=== PATIENT | male | born 1995 | race Caucasian/White ===

== ENCOUNTER 2017-12-07 13:42 | Emergency (ER) | payer MEDICAID ==
[~2017-12-07] VITALS: Ht 190.5 cm; Wt 107.2 kg
[2017-12-07 13:56] VITALS: BP 137/82
== END 2017-12-07 15:32 | disposition home or self-care (01) ==
LOC: ED 14:30
DX: G89.11 Acute pain due to trauma (principal); M25.531 Pain in right wrist; F17.200 Nicotine dependence, unspecified, uncomplicated
CPT/HCPCS: 29125; 99284

== ENCOUNTER 2019-08-27 13:02 | Emergency (ER) | payer MEDICAID ==
[~2019-08-27] VITALS: Ht 190.5 cm; Wt 105.0 kg
[2019-08-27 13:04] VITALS: BP 136/79
--- NOTE | 2019-08-27 13:44 | NUR ---
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
[2019-08-27] MEDS ORDERED: IBUPROFEN 200 MG TABLET ONE (14:13)
[2019-08-27] MEDS ORDERED: IBUPROFEN 600 MG TABLET PO ONE (14:30)
[2019-08-27] MEDS ORDERED: LIDOCAINE-MPF 1%, 5ML ONE (14:54)
[2019-08-27] MEDS ORDERED: LIDOCAINE-MPF 1%, 5ML INFIL ONE (15:00)
== END 2019-08-27 15:49 | disposition home or self-care (01) ==
LOC: ED 15:10
DX: S80.01XA Contusion of right knee, initial encounter (principal); F17.200 Nicotine dependence, unspecified, uncomplicated; W18.39XA Other fall on same level, initial encounter; Y93.39 Activity, other involving climbing, rappelling and jumping off; Y92.828 Other wilderness area as the place of occurrence of the external cause; Y99.8 Other external cause status
CPT/HCPCS: 20605; 99285

== ENCOUNTER 2019-09-04 18:45 | Emergency (ER) | payer MEDICAID ==
[~2019-09-04] VITALS: Ht 190.5 cm; Wt 107.4 kg
[2019-09-04 20:54] VITALS: BP 118/67
== END 2019-09-04 20:57 | disposition home or self-care (01) ==
LOC: ED 20:30
DX: S30.0XXA Contusion of lower back and pelvis, initial encounter (principal); F17.200 Nicotine dependence, unspecified, uncomplicated; W01.0XXA Fall on same level from slipping, tripping and stumbling without subsequent striking against object, initial encounter; Y93.79 Activity, other specified sports and athletics; Y92.89 Other specified places as the place of occurrence of the external cause; Y99.8 Other external cause status
CPT/HCPCS: 72110; 72220; 99284

== ENCOUNTER 2019-11-05 22:33 | Emergency (ER) | payer MEDICAID ==
[~2019-11-05] VITALS: Ht 190.5 cm; Wt 103.1 kg
[2019-11-05] MEDS ORDERED: CEFTRIAXONE 250 MG IM ONE (23:00)
[2019-11-05] MEDS ORDERED: AZITHROMYCIN 500 MG TABLET PO ONE (23:00)
[2019-11-05] MEDS ORDERED: AZITHROMYCIN 250 MG TABLET ONE (23:12)
[2019-11-05] MEDS ORDERED: CEFTRIAXONE 250 MG ONE (23:12)
[2019-11-05 23:15] LABS: BASOPHILS # (AUTO) 0.09 x10^3/uL (0-0.1); BASOPHILS % (AUTO) 1 % (0-1); EOSINOPHILS # (AUTO) 0.17 x10^3/uL (0-0.4); EOSINOPHILS % (AUTO) 1 % (1-7); LYMPHOCYTES # (AUTO) 3.96 x10^3/uL (1-3.4); LYMPHOCYTES % (AUTO) 30 % (22-44); MD NO; MEAN CORPUSCULAR HEMOGLOBIN 30.5 pg (27.5-34.5); MEAN CORPUSCULAR HGB CONC 33.8 g/dL (33.2-36.2); MEAN CORPUSCULAR VOLUME 90.1 fL (81-97); MEAN PLATELET VOLUME 7.5 fL (7.4-10.4); MONOCYTES # (AUTO) 1.12 x10^3/uL (0.2-0.8); MONOCYTES % (AUTO) 9 % (2-9); NEUTROPHILS # (AUTO) 7.75 x10^3/uL (1.8-6.8); NEUTROPHILS % (AUTO) 59 % (42-75); PLATELET COUNT 294 x10^3/uL (130-400); RED BLOOD COUNT 4.88 x10^6/uL (4.38-5.82); RED CELL DISTRIBUTION WIDTH 13.2 % (9.4-14.8)
[2019-11-05 23:25] LABS: ALBUMIN 3.3 g/dL (3.4-5.0); ANION GAP 4 mmol/L (5-15); CALCIUM 8.4 mg/dL (8.5-10.1); CHLORIDE 112 mmol/L (98-107)
--- NOTE | 2019-11-05 23:36 | NUR ---
PATIENT TOLERATED MEDICATION ADMINISTRATION WELL. UPDATED ON PLAN OF CARE. NO NOTED FURTHER NEEDS. PATIENT VERBALIZED UNDERSTANDING OF POSSIBLE ANTIBIOTIC REACTION.
[2019-11-05 23:46] LABS: MICROSCOPIC INDICATED
[2019-11-06 00:52] VITALS: BP 132/75
== END 2019-11-06 00:54 | disposition home or self-care (01) ==
LOC: ED 23:29
DX: N39.0 Urinary tract infection, site not specified (principal); R30.0 Dysuria; R31.9 Hematuria, unspecified; Z20.2 Contact with and (suspected) exposure to infections with a predominantly sexual mode of transmission
CPT/HCPCS: 36415; 80048; 81001; 82040; 85025; 87086; 87491; 87591; 96372; 99283; J0696

== ENCOUNTER 2020-01-13 17:05 | Emergency (ER) | payer MEDICAID ==
[~2020-01-13] VITALS: Ht 190.5 cm; Wt 98.6 kg
[2020-01-13 17:07] VITALS: BP 148/79
== END 2020-01-13 18:59 | disposition home or self-care (01) ==
LOC: ED 18:19
DX: Z00.00 Encounter for general adult medical examination without abnormal findings (principal); Z21 Asymptomatic human immunodeficiency virus [HIV] infection status
CPT/HCPCS: 36415; 87806; 99283; G0475

== ENCOUNTER 2020-06-11 15:43 | Emergency (ER) | payer MEDICAID ==
[~2020-06-11] VITALS: Ht 190.5 cm; Wt 102.2 kg
[2020-06-11 16:02] VITALS: BP 148/85
--- NOTE | 2020-06-11 16:09 | NUR ---
PATIENT WALKED BACK FROM TRIAGE WITH CHIEF C/O "I NEED TO BE CHECKED FOR GONNORHEA." PATIENT DENIES SYMPTOMS, BUT PATIENT REPORTS PARTNER REPORTS TESTING POSITIVE FOR GONNORHEA.
--- NOTE | 2020-06-11 17:06 | NUR ---
ER PROVIDER AT BEDSIDE FOR EVALUATION.
[2020-06-11] MEDS ORDERED: AZITHROMYCIN 250 MG TABLET ONE (17:21)
[2020-06-11] MEDS ORDERED: CEFTRIAXONE 250 MG ONE (17:21)
[2020-06-11] MEDS ORDERED: AZITHROMYCIN 500 MG TABLET PO ONE (17:30)
[2020-06-11] MEDS ORDERED: CEFTRIAXONE 1,000 MG IM ONE (17:30)
--- NOTE | 2020-06-11 17:33 | NUR ---
PATIENT MEDICATED PER eMAR, URINE SAMPLE COLLECTED AND SENT TO LAB.
--- NOTE | 2020-06-11 17:52 | NUR ---
pt in bed with no signs or symptoms of acute distress noted respirations even and unlabored
== END 2020-06-11 18:29 | disposition home or self-care (01) ==
LOC: ED 16:17
DX: Z20.2 Contact with and (suspected) exposure to infections with a predominantly sexual mode of transmission (principal)
CPT/HCPCS: 87491; 87591; 96372; 99283; J0696

== ENCOUNTER 2020-07-01 08:19 | Emergency (ER) | payer MEDICAID ==
[~2020-07-01] VITALS: Ht 190.5 cm; Wt 104.6 kg
[2020-07-01 08:28] VITALS: BP 150/77
--- NOTE | 2020-07-01 08:52 | NUR ---
PT AMBULATORY TO ROOM FROM LOBBY. CALL LIGHT WITHIN REACH.
== END 2020-07-01 09:29 | disposition home or self-care (01) ==
LOC: ED 08:47
DX: K02.9 Dental caries, unspecified (principal); F17.210 Nicotine dependence, cigarettes, uncomplicated
CPT/HCPCS: 99283